=== PATIENT | male | born 1955 | race Caucasian/White ===

== ENCOUNTER 2023-08-20 17:07 | Inpatient (IN) | payer OTHER ==
[2023-08-20] MEDS ORDERED: LORazepam 2 MG/ML SDV VIAL IM ONE (17:18)
[2023-08-20 17:27] VITALS: BMI 25.0
[2023-08-20] MEDS ORDERED: chlordiazePOXIDE HCL 25 MG CAPSULE PO ONE (17:41)
[2023-08-20] MEDS ORDERED: POLYETHYLENE GLYCOL (HEALTHYLAX) 3350 17 GM PACKET PO PRN (17:41)
[2023-08-20] MEDS ORDERED: LOPERAMIDE HCL 2 MG CAPSULE PO PRN (17:41)
[2023-08-20] MEDS ORDERED: MAGNESIUM HYDROX 2400MG/30ML ORAL SUSPENSION 30 ML CUP PO PRN (17:41)
[2023-08-20] MEDS ORDERED: ONDANSETRON *ODT* 4 MG TABLET SL PRN (17:41)
[2023-08-20] MEDS ORDERED: guaiFENesin 600 MG TABLET.ER (FP) PO PRN (17:41)
[2023-08-20] MEDS ORDERED: P-EPHED 60MG/TRIPROLIDI 2.5MG TABLET PO PRN (17:41)
[2023-08-20] MEDS ORDERED: BENZOCAINE/MENTHOL (CHLORASEPTIC ) LOZENGE MM PRN (17:41)
[2023-08-20] MEDS ORDERED: BENZONATATE 200 MG CAPSULE PO PRN (17:41)
[2023-08-20] MEDS ORDERED: NICOTINE POLACRILEX 2 MG GUM BUC PRN (17:41)
[2023-08-20] MEDS ORDERED: chlordiazePOXIDE HCL 25 MG CAPSULE ONE (18:17)
[2023-08-20] MEDS: chlordiazePOXIDE HCL 25 MG CAPSULE PO PRN (19:20)
[2023-08-20] MEDS ORDERED: IPRATROPIUM BR 0.02% 0.5 MG/2.5 ML VIAL.NEB. NEB PRN (20:09)
[2023-08-20] MEDS: APIXABAN 5 MG TABLET PO SCH (21:07)
[2023-08-20] MEDS: levETIRAcetam 500 MG TABLET (FP) PO SCH (21:07)
[2023-08-20] MEDS: ATORVASTATIN CA 10 MG TABLET (FP) PO SCH (21:07)
[2023-08-20] MEDS: CARVEDILOL 25 MG TABLET (FP) PO SCH (21:07)
[2023-08-20] MEDS: GABAPENTIN 300 MG CAPSULE PO SCH (21:08)
[2023-08-20] MEDS: TAMSULOSIN HCL 0.4 MG CAP PO SCH (21:08)
[2023-08-20] MEDS: THIAMINE HCL 100 MG TABLET (FP) PO SCH (21:10)
[2023-08-20] MEDS: chlordiazePOXIDE HCL 25 MG CAPSULE PO SCH (22:08)
[2023-08-20] MEDS: MELATONIN 5 MG TABLETS PO SCH (22:08)
[2023-08-21] MEDS: MAG HYDROX/AL HYDROX/SIMETH 30 ML UNIT-DOSE CUP PO PRN ×3 (01:44→17:32)
[2023-08-21] MEDS: chlordiazePOXIDE HCL 25 MG CAPSULE PO PRN (01:45)
[2023-08-21] MEDS: chlordiazePOXIDE HCL 25 MG CAPSULE PO SCH ×4 (05:09→22:06)
[2023-08-21 09:15] LABS: CHLORIDE 105 mmol/L (98-107); POTASSIUM 3.6 mmol/L (3.5-5.1); SODIUM 143 mmol/L (136-145)
[2023-08-21 09:16] LABS: GLUCOSE,RANDOM 116 mg/dL (74-106)
[2023-08-21 09:18] LABS: ALBUMIN 3.2 g/dl (3.4-5.0); ANION GAP 6 mmol/L (4-13); BLOOD UREA NITROGEN 8.4 mg/dL (7-18); CALCIUM 8.3 mg/dL (8.5-10.1); CO2 32 mmol/L (21-32)
[2023-08-21 09:20] LABS: HEMATOCRIT 30.2 % (35.4-49); HEMOGLOBIN 10.7 GM/dL (11.7-16.9); MCHC 35.4 g/dl (32.0-35.9); MEAN CELL VOLUME 96.1 fl (80-96); MEAN PLT VOLUME 7.9 fl (7.5-11.1); PLATELET COUNT 113 10^3/uL (134-434); RBC 3.14 M/mm3 (4.00-5.60); RDW 15.8 % (11.9-15.9); SGPT/ALT 64 U/L (13-61); WHITE BLOOD COUNT 6.2 K/mm3 (4.0-10.0)
[2023-08-21 09:21] LABS: BILIRUBIN,TOTAL 1.2 mg/dL (0.2-1); CREATININE 0.9 mg/dL (0.55-1.3); SGOT/AST 64 U/L (15-37); TOT PROT 6.2 g/dl (6.4-8.2)
[2023-08-21 09:23] LABS: ALK PHOS 107 U/L (45-117)
[2023-08-21] MEDS: PRENATAL VITAMINS W/ FOLIC ACID TABLET (FP) PO SCH (10:14)
[2023-08-21] MEDS: PANTOPRAZOLE 40 MG TABLET PO SCH (10:14)
[2023-08-21] MEDS: APIXABAN 5 MG TABLET PO SCH ×2 (10:14→22:05)
[2023-08-21] MEDS: levETIRAcetam 500 MG TABLET (FP) PO SCH ×2 (10:14→22:05)
[2023-08-21] MEDS: amLODIPine BESYLATE 10 MG TABLET (FP) PO SCH (10:14)
[2023-08-21] MEDS: CARVEDILOL 25 MG TABLET (FP) PO SCH ×2 (10:15→22:05)
[2023-08-21] MEDS: ACETAMINOPHEN 325 MG TABLET (FP) PO PRN (14:25)
[2023-08-21] MEDS: MIRTAZAPINE 15 MG TABLET (FP) PO SCH (22:05)
[2023-08-21] MEDS: TAMSULOSIN HCL 0.4 MG CAP PO SCH (22:05)
[2023-08-21] MEDS: THIAMINE HCL 100 MG TABLET (FP) PO SCH (22:05)
[2023-08-21] MEDS: ATORVASTATIN CA 10 MG TABLET (FP) PO SCH (22:05)
[2023-08-21] MEDS: GABAPENTIN 300 MG CAPSULE PO SCH (22:05)
[2023-08-21] MEDS: MELATONIN 5 MG TABLETS PO SCH (22:11)
[2023-08-22] MEDS: MAG HYDROX/AL HYDROX/SIMETH 30 ML UNIT-DOSE CUP PO PRN (05:42)
[2023-08-22] MEDS: chlordiazePOXIDE HCL 25 MG CAPSULE PO SCH ×4 (05:42→22:07)
[2023-08-22] MEDS: CARVEDILOL 25 MG TABLET (FP) PO SCH ×2 (10:12→22:08)
[2023-08-22] MEDS: levETIRAcetam 500 MG TABLET (FP) PO SCH ×2 (10:12→22:08)
[2023-08-22] MEDS: PRENATAL VITAMINS W/ FOLIC ACID TABLET (FP) PO SCH (10:13)
[2023-08-22] MEDS: PANTOPRAZOLE 40 MG TABLET PO SCH (10:13)
[2023-08-22] MEDS: APIXABAN 5 MG TABLET PO SCH ×2 (10:13→22:08)
[2023-08-22] MEDS: amLODIPine BESYLATE 10 MG TABLET (FP) PO SCH (10:13)
[2023-08-22 12:14] LABS: POTASSIUM 3.5 mmol/L (3.5-5.1)
[2023-08-22 12:16] LABS: CALCIUM 8.7 mg/dL (8.5-10.1); HEMATOCRIT 32.2 % (35.4-49); HEMOGLOBIN 10.8 GM/dL (11.7-16.9); MCHC 33.4 g/dl (32.0-35.9); MEAN CELL VOLUME 98.7 fl (80-96); MEAN PLT VOLUME 8.1 fl (7.5-11.1); PLATELET COUNT 110 10^3/uL (134-434); RBC 3.26 M/mm3 (4.00-5.60); RDW 15.8 % (11.9-15.9); RETICULOCYTES 2.33 % (0.5-1.5); WHITE BLOOD COUNT 7.6 K/mm3 (4.0-10.0)
[2023-08-22 12:17] LABS: ALBUMIN 3.5 g/dl (3.4-5.0); BLOOD UREA NITROGEN 5.4 mg/dL (7-18)
[2023-08-22 12:19] LABS: CREATININE 0.8 mg/dL (0.55-1.3)
[2023-08-22 12:21] LABS: BILIRUBIN,TOTAL 1.2 mg/dL (0.2-1); TOT PROT 6.5 g/dl (6.4-8.2)
[2023-08-22] MEDS: ACETAMINOPHEN 325 MG TABLET (FP) PO PRN (18:29)
[2023-08-22] MEDS: GABAPENTIN 300 MG CAPSULE PO SCH (22:07)
[2023-08-22] MEDS: TAMSULOSIN HCL 0.4 MG CAP PO SCH (22:07)
[2023-08-22] MEDS: ATORVASTATIN CA 10 MG TABLET (FP) PO SCH (22:07)
[2023-08-22] MEDS: THIAMINE HCL 100 MG TABLET (FP) PO SCH (22:08)
[2023-08-22] MEDS: MIRTAZAPINE 15 MG TABLET (FP) PO SCH (22:08)
[2023-08-22] MEDS: MELATONIN 5 MG TABLETS PO SCH (22:11)
[2023-08-23] MEDS ORDERED: chlordiazePOXIDE HCL 10 MG CAPSULE PO PRN
[2023-08-23] MEDS: chlordiazePOXIDE HCL 10 MG CAPSULE PO SCH ×4 (04:28→22:12)
[2023-08-23] MEDS: PRENATAL VITAMINS W/ FOLIC ACID TABLET (FP) PO SCH (09:59)
[2023-08-23] MEDS: APIXABAN 5 MG TABLET PO SCH ×2 (09:59→22:11)
[2023-08-23] MEDS: levETIRAcetam 500 MG TABLET (FP) PO SCH ×2 (10:00→22:12)
[2023-08-23] MEDS: amLODIPine BESYLATE 10 MG TABLET (FP) PO SCH (10:00)
[2023-08-23] MEDS: PANTOPRAZOLE 40 MG TABLET PO SCH (10:00)
[2023-08-23] MEDS: CARVEDILOL 25 MG TABLET (FP) PO SCH ×2 (10:02→22:11)
[2023-08-23] MEDS: ACETAMINOPHEN 325 MG TABLET (FP) PO PRN (18:11)
[2023-08-23] MEDS: THIAMINE HCL 100 MG TABLET (FP) PO SCH (22:11)
[2023-08-23] MEDS: ATORVASTATIN CA 10 MG TABLET (FP) PO SCH (22:12)
[2023-08-23] MEDS: GABAPENTIN 300 MG CAPSULE PO SCH (22:12)
[2023-08-23] MEDS: TAMSULOSIN HCL 0.4 MG CAP PO SCH (22:12)
[2023-08-23] MEDS: MELATONIN 5 MG TABLETS PO SCH (22:13)
[2023-08-23] MEDS: MIRTAZAPINE 15 MG TABLET (FP) PO SCH (22:14)
[2023-08-24] MEDS ORDERED: chlordiazePOXIDE HCL 10 MG CAPSULE PO SCH (05:00)
[2023-08-24 06:02] VITALS: PULSE 75
[2023-08-24] MEDS: ACETAMINOPHEN 325 MG TABLET (FP) PO PRN (07:40)
[2023-08-24] MEDS: levETIRAcetam 500 MG TABLET (FP) PO SCH (09:31)
[2023-08-24] MEDS: CARVEDILOL 25 MG TABLET (FP) PO SCH (09:31)
[2023-08-24] MEDS: PANTOPRAZOLE 40 MG TABLET PO SCH (09:31)
[2023-08-24] MEDS: APIXABAN 5 MG TABLET PO SCH (09:32)
[2023-08-24] MEDS: amLODIPine BESYLATE 10 MG TABLET (FP) PO SCH (09:32)
[2023-08-24] MEDS: PRENATAL VITAMINS W/ FOLIC ACID TABLET (FP) PO SCH (09:33)
[2023-08-24 09:36] VITALS: BP 125/72; RESP 16; TEMP 97.1
[2023-08-25] MEDS ORDERED: chlordiazePOXIDE HCL 10 MG CAPSULE PO ONE (05:00)
== END 2023-08-24 09:46 | disposition home or self-care (01) | DRG 897 ==
LOC: YASAS 17:07 → Y6N 18:34
PROVIDERS: ADMIT Allergy & Immunology; ATTEND Surgery
PROC: HZ2ZZZZ Detoxification Services for Substance Abuse Treatment (ICD-10-PCS; principal; 2023-08-20)
DX: F10.230 Alcohol dependence with withdrawal, uncomplicated (principal); F17.210 Nicotine dependence, cigarettes, uncomplicated; F10.282 Alcohol dependence with alcohol-induced sleep disorder; F10.280 Alcohol dependence with alcohol-induced anxiety disorder; F32.9 Major depressive disorder, single episode, unspecified; E78.5 Hyperlipidemia, unspecified; I10 Essential (primary) hypertension; I48.91 Unspecified atrial fibrillation; Z79.01 Long term (current) use of anticoagulants; K21.9 Gastro-esophageal reflux disease without esophagitis; M79.2 Neuralgia and neuritis, unspecified; N40.0 Benign prostatic hyperplasia without lower urinary tract symptoms
CPT/HCPCS: 26055; 36415; 80053; 80307; 82607; 82746; 83540; 83550; 85027; 85045; 86780; 87635; 87811; 93005; 93010

== ENCOUNTER 2023-11-01 12:56 | Inpatient (IN) | payer OTHER ==
[2023-11-01 13:42] VITALS: BMI 28.4
[2023-11-01] MEDS ORDERED: NALOXONE HCL (KLOXXADO) 8 MG SPRAY NS PRN (17:46)
[2023-11-01] MEDS ORDERED: METHOCARBAMOL 500 MG TABLET PO PRN (17:46)
[2023-11-01] MEDS ORDERED: BENZOCAINE/MENTHOL (CHLORASEPTIC ) LOZENGE MM PRN (17:46)
[2023-11-01] MEDS ORDERED: ONDANSETRON *ODT* 4 MG TABLET SL PRN (17:46)
[2023-11-01] MEDS ORDERED: IBUPROFEN 400 MG TABLET (FP) PO PRN (17:46)
[2023-11-01] MEDS ORDERED: IBUPROFEN 600 MG TABLET (FP) PO PRN (17:46)
[2023-11-01] MEDS ORDERED: MAGNESIUM HYDROX 2400MG/30ML ORAL SUSPENSION 30 ML CUP PO PRN (17:46)
[2023-11-01] MEDS ORDERED: LOPERAMIDE HCL 2 MG CAPSULE PO PRN (17:46)
[2023-11-01] MEDS ORDERED: guaiFENesin 600 MG TABLET.ER (FP) PO PRN (17:46)
[2023-11-01] MEDS ORDERED: POLYETHYLENE GLYCOL (HEALTHYLAX) 3350 17 GM PACKET PO PRN (17:46)
[2023-11-01] MEDS ORDERED: BENZONATATE 200 MG CAPSULE PO PRN (17:46)
[2023-11-01] MEDS ORDERED: BISMUTH SUBSALICYLATE 524 MG/30 ML PO PRN (17:46)
[2023-11-01] MEDS ORDERED: DICYCLOMINE HCL 10 MG CAPSULE PO PRN (17:46)
[2023-11-01] MEDS ORDERED: hydrOXYzine PAMOATE 25 MG CAPSULE (FP) PO PRN (17:46)
[2023-11-01] MEDS ORDERED: NALOXONE HCL 0.4 MG/ML VIAL IM PRN (17:46)
[2023-11-01] MEDS ORDERED: diazePAM 5 MG TABLET ONE (18:34)
[2023-11-01] MEDS: diazePAM 5 MG TABLET PO PRN (18:37)
[2023-11-01] MEDS ORDERED: IBUPROFEN 600 MG TABLET (FP) PO ONE (18:53)
[2023-11-01] MEDS: CARVEDILOL 25 MG TABLET (FP) PO SCH (22:33)
[2023-11-01] MEDS: APIXABAN 5 MG TABLET PO SCH (22:34)
[2023-11-01] MEDS: MELATONIN 5 MG TABLETS PO SCH (22:34)
[2023-11-01] MEDS: THIAMINE HCL 100 MG TABLET (FP) PO SCH (22:34)
[2023-11-01] MEDS: levETIRAcetam 500 MG TABLET (FP) PO SCH (22:34)
[2023-11-01] MEDS: diazePAM 5 MG TABLET PO SCH (22:36)
[2023-11-02] MEDS: diazePAM 5 MG TABLET PO SCH ×4 (05:55→22:08)
[2023-11-02] MEDS: CARVEDILOL 25 MG TABLET (FP) PO SCH ×2 (10:25→22:10)
[2023-11-02] MEDS: PANTOPRAZOLE 40 MG TABLET PO SCH (10:25)
[2023-11-02] MEDS: levETIRAcetam 500 MG TABLET (FP) PO SCH ×2 (10:25→22:07)
[2023-11-02] MEDS: FAMOTIDINE 20 MG TABLET PO SCH (10:25)
[2023-11-02] MEDS: PRENATAL VITAMINS W/ FOLIC ACID TABLET (FP) PO SCH (10:25)
[2023-11-02] MEDS: APIXABAN 5 MG TABLET PO SCH ×2 (10:25→22:07)
[2023-11-02 11:38] LABS: HEMATOCRIT 34.3 % (35.4-49); HEMOGLOBIN 11.9 GM/dL (11.7-16.9); MCH 32.9 pg (25.7-33.7); MCHC 34.7 g/dl (32.0-35.9); MEAN CELL VOLUME 94.9 fl (80-96); MEAN PLT VOLUME 7.9 fl (7.5-11.1); PLATELET COUNT 122 10^3/uL (134-434); RBC 3.62 M/mm3 (4.00-5.60); RDW 16.3 % (11.9-15.9); WHITE BLOOD COUNT 5.6 K/mm3 (4.0-10.0)
[2023-11-02 12:05] LABS: CHLORIDE 95 mmol/L (98-107); POTASSIUM 3.7 mmol/L (3.5-5.1); SODIUM 133 mmol/L (136-145)
[2023-11-02 12:12] LABS: CALCIUM 8.9 mg/dL (8.5-10.1)
[2023-11-02 12:13] LABS: ALBUMIN 3.8 g/dl (3.4-5.0); ANION GAP 8 mmol/L (4-13); CO2 30 mmol/L (21-32); GLUCOSE,RANDOM 109 mg/dL (74-106)
[2023-11-02 12:15] LABS: SGPT/ALT 168 U/L (13-61)
[2023-11-02 12:16] LABS: CREATININE 0.7 mg/dL (0.55-1.3); SGOT/AST 192 U/L (15-37)
[2023-11-02 12:17] LABS: BILIRUBIN,TOTAL 2.1 mg/dL (0.2-1); TOT PROT 6.7 g/dl (6.4-8.2)
[2023-11-02 12:18] LABS: ALK PHOS 111 U/L (45-117)
[2023-11-02] MEDS: MAG HYDROX/AL HYDROX/SIMETH 30 ML UNIT-DOSE CUP PO PRN (17:16)
[2023-11-02] MEDS: ACETAMINOPHEN 325 MG TABLET (FP) PO PRN (20:58)
[2023-11-02] MEDS: MELATONIN 5 MG TABLETS PO SCH (22:07)
[2023-11-02] MEDS: MIRTAZAPINE 15 MG TABLET (FP) PO SCH (22:07)
[2023-11-02] MEDS: THIAMINE HCL 100 MG TABLET (FP) PO SCH (22:08)
[2023-11-03] MEDS: diazePAM 5 MG TABLET PO SCH ×3 (05:39→22:45)
[2023-11-03] MEDS: TAMSULOSIN HCL 0.4 MG CAP PO SCH (07:18)
[2023-11-03] MEDS: FAMOTIDINE 20 MG TABLET PO SCH (10:00)
[2023-11-03] MEDS: levETIRAcetam 500 MG TABLET (FP) PO SCH ×2 (10:00→22:09)
[2023-11-03] MEDS: APIXABAN 5 MG TABLET PO SCH ×2 (10:00→22:09)
[2023-11-03] MEDS: PANTOPRAZOLE 40 MG TABLET PO SCH (10:00)
[2023-11-03] MEDS: CARVEDILOL 25 MG TABLET (FP) PO SCH ×2 (10:01→22:10)
[2023-11-03] MEDS: PRENATAL VITAMINS W/ FOLIC ACID TABLET (FP) PO SCH (10:01)
[2023-11-03] MEDS: diazePAM 5 MG TABLET PO PRN ×2 (10:02→20:47)
[2023-11-03] MEDS: MAG HYDROX/AL HYDROX/SIMETH 30 ML UNIT-DOSE CUP PO PRN (18:32)
[2023-11-03] MEDS ORDERED: SUVOREXANT 10 MG TABLET PO PRN (22:00)
[2023-11-03] MEDS: MIRTAZAPINE 15 MG TABLET (FP) PO SCH (22:09)
[2023-11-03] MEDS: THIAMINE HCL 100 MG TABLET (FP) PO SCH (22:09)
[2023-11-04] MEDS: ACETAMINOPHEN 325 MG TABLET (FP) PO PRN (05:42)
[2023-11-04] MEDS ORDERED: diazePAM 5 MG TABLET PO SCH (06:00)
[2023-11-04 06:10] VITALS: RESP 18
[2023-11-04] MEDS: TAMSULOSIN HCL 0.4 MG CAP PO SCH (07:12)
[2023-11-04 09:38] VITALS: BP 140/90; PULSE 73; TEMP 96.4
[2023-11-05] MEDS ORDERED: diazePAM 5 MG TABLET PO ONE (06:00)
== END 2023-11-04 09:38 | disposition home or self-care (01) | DRG 897 ==
LOC: YASAS 12:56 → Y6N 18:41
PROVIDERS: ADMIT Allergy & Immunology; ATTEND Surgery
PROC: HZ2ZZZZ Detoxification Services for Substance Abuse Treatment (ICD-10-PCS; principal; 2023-11-01)
DX: F10.230 Alcohol dependence with withdrawal, uncomplicated (principal); F10.282 Alcohol dependence with alcohol-induced sleep disorder; F10.280 Alcohol dependence with alcohol-induced anxiety disorder; F32.A Depression, unspecified; G47.00 Insomnia, unspecified; I10 Essential (primary) hypertension; I48.91 Unspecified atrial fibrillation; M41.9 Scoliosis, unspecified; M54.50 Low back pain, unspecified; G89.29 Other chronic pain; N40.0 Benign prostatic hyperplasia without lower urinary tract symptoms; Z87.891 Personal history of nicotine dependence
CPT/HCPCS: 36415; 80053; 80307; 85027; 86780; 87635; 93005; 93010; Q0162